=== PATIENT | female | born 1950 | race Caucasian/White ===

== ENCOUNTER 2017-03-27 09:14 | Inpatient (IN) | payer MEDICARE ==
[~2017-03-27] VITALS: Ht 157.5 cm; Wt 63.5 kg
--- NOTE | 2017-03-27 10:33 | NUR ---
PT REC'D TO ER C/O CONSTIPATION TAKES PAIN MEDS FOR CHRONIC BACK PAINAWAITING EVALUATION BY ER PROVIDER.
[2017-03-27] MEDS ORDERED: METOCLOPRAMIDE HCL 10 MG/2 ML VIAL ONE (10:39)
[2017-03-27] MEDS ORDERED: ONDANSETRON HCL/PF 4 MG/2 ML VIAL ONE (10:40)
[2017-03-27] MEDS ORDERED: ONDANSETRON HCL/PF 4 MG/2 ML VIAL IVP ONE (11:00)
[2017-03-27] MEDS ORDERED: IV NS 0.9% 1,000 ML BAG IV ONE ×2 (11:00→13:00)
[2017-03-27] MEDS ORDERED: METOCLOPRAMIDE HCL 10 MG/2 ML VIAL IV ONE (11:00)
--- NOTE | 2017-03-27 11:04 | NUR ---
IV STARTED 20G LEFT AC LABS DRANS SENT TO LAB MDED GIVEN PER MD ORDER
[2017-03-27 11:05] LABS: BASOPHILS # (AUTO) 0.7 /CMM (0.0-0.2); BASOPHILS % (AUTO) 4.2 % (0.0-2.0); EOSINOPHILS # (AUTO) 0.1 /CMM (0.0-0.7); EOSINOPHILS % (AUTO) 0.4 % (0.0-6.0); HEMATOCRIT 29 % (33-45); HEMOGLOBIN 9.7 g/dL (11.5-14.8); LYMPHOCYTES # (AUTO) 4.2 /CMM (0.8-4.8); MEAN CORPUSCULAR HEMOGLOBIN 30 PG (26.0-33.0); MEAN CORPUSCULAR HGB CONC 33 g/dl (31.0-36.0); MEAN CORPUSCULAR VOLUME 88 fL (82-100); MONOCYTES # (AUTO) 1.3 /CMM (0.1-1.30); NEUTROPHILS # (AUTO) 9.4 /CMM (1.8-8.9); NEUTROPHILS % (AUTO) 60.4 % (43.0-81.0); PLATELET COUNT (AUTO) 260 /CMM (150-450); RDW COEFFICIENT OF VARIATION 15.4 (11.5-15.0); RED BLOOD CELL COUNT(AUTO) 3.27 MIL/uL (4.0-5.2); WHITE BLOOD COUNT (AUTO) 15.7 K/uL (4.3-11.0)
[2017-03-27 11:15] LABS: CALCIUM, SERUM 9.3 mg/dL (8.5-10.1); POTASSIUM 3.2 mmol/L (3.5-5.1)
[2017-03-27 11:21] LABS: ALBUMIN 3.7 g/dL (3.4-5.0); BILIRUBIN,DIRECT 0.1 mg/dL (0.0-0.2); BILIRUBIN,TOTAL 0.6 mg/dL (0.2-1.0); TOTAL PROTEIN, SERUM 7.5 g/dL (6.4-8.2)
--- NOTE | 2017-03-27 11:22 | NUR ---
MEDS GIVEN PER
[2017-03-27] MEDS ORDERED: HYDROMORPHONE 1 MG/1 ML DISP.SYRIN ONE (11:30)
[2017-03-27] MEDS ORDERED: HYDROMORPHONE 1 MG/1 ML DISP.SYRIN IV ONE (11:30)
[2017-03-27] MEDS ORDERED: OXYC-34 PO (11:57)
[2017-03-27] MEDS ORDERED: IBUP-1481 PO (11:57)
[2017-03-27] MEDS ORDERED: LEVO100T9 PO (11:57)
[2017-03-27] MEDS ORDERED: POTASSIUM CHLORIDE 20 MEQ TAB.PRT.SR PO ONE ×2 (12:00→12:02)
--- NOTE | 2017-03-27 12:50 | NUR ---
pt k , bun, creatine abnormal notofoed md
[2017-03-27] MEDS ORDERED: LACTULOSE 10 G/15 ML UDC (PYXIS) ONE (12:58)
--- NOTE | 2017-03-27 12:58 | NUR ---
PAGED DR VELÁZQUEZ FOR ADMISSION
[2017-03-27] MEDS ORDERED: LACTULOSE 10 G/15 ML UDC (PYXIS) PO ONE (13:00)
--- NOTE | 2017-03-27 13:27 | NUR ---
REPORT CALLED TO FLOOR PT STABLE VOIDED 700 CC CL YELLOW URINE NO BM AT THIS TIME . AT THE BEDSIDE TO THE FLOOR VIA W/C
[2017-03-27] MEDS ORDERED: ACETAMINOPHEN 325 MG TABLET PO PRN (13:30)
[2017-03-27] MEDS ORDERED: Z GUARD REMEDY 2 OZ OINT TP PRN (13:30)
[2017-03-27] MEDS ORDERED: ZOLPIDEM TARTRATE 5 MG TABLET PO PRN (13:30)
[2017-03-27] MEDS ORDERED: MAG HYDROX/AL HYDROX/SIMETH 30 ML UDC PO PRN (13:30)
--- NOTE | 2017-03-27 14:40 | NUR ---
HEEL BURNISHER RECEIVED PATIENT FROM E.R. DEPARTMENT VIA [facility], ALERT AND ORIENTED, NO DISTRESS NOTED, ABLE TO AMBULATE WITH ASSISTANCE, PAIN ON BACK AREA TOLERABLE AT THIS TIME, NEEDS ATTENDED AND MET, PIV ON LAC PATENT AND INTACT, ORDERS RECEIVED FROM DR. VELÁZQUEZ AND CARRIED OUT, SAFETY MEASURES IN PLACED, CALL LIGHT WITHIN REACH, WILL CONTINUE TO MONITOR.
--- NOTE | 2017-03-27 15:00 | NUR ---
RN MS NOTES PHYSICAL AND SKIN ASSESSMENT COMPLETED, WOUND ON RIGHT INNER BUTTOCK AND BRUISE ON FOREHEAD, PHOTOS TAKEN, ALL NEEDS ATTENDED AND MET, WILL CONTINUE TO MONITOR.
[2017-03-27] MEDS: LEVOTHYROXINE SODIUM 100 MCG TABLET PO SCH (15:10)
[2017-03-27] MEDS: IV 1/2NS 1000 ML 1,000 ML IV PRN (15:13)
--- NOTE | 2017-03-27 17:00 | NUR ---
RN MS NOTES FOUND PATIENT'S HANDS WITH REDNESS AROUND THE FINGERNAILS AND WITH MULTIPLE ABRASIONS, PHOTO TAKEN, PER PATIENT, "I PICK ON MY CUTICLES, WHEN IM NERVOUS." PATIENT ENCOURAGED TO WASH HANDS, AND TO STOP FROM PICKING THE SKIN AROUND HER FINGERNAILS. PATIENT VERBALIZED UNDERSTANDING.
[2017-03-27] MEDS: HYDROCODONE/APAP 5/325MG 1 EACH TABLET PO PRN (17:58)
--- NOTE | 2017-03-27 18:15 | NUR ---
RN MS NOTES PATIENT IN BED, ALERT AND ORIENTED, REPOSITIONED MULTIPLE TIMES FOR COMFORT, NORCO GIVEN FOR PAIN MANAGEMENT, STILL NO BM AT THIS TIME, OFFERED PRUNE JUICE, BUT PATIENT REFUSED, PIV ON LEFT AC #20 WITH IVF RUNNING AT 100ML/HR, ALL NEEDS ATTENDED, NO DISTRESS NOTED, ENCOURAGED TO USE CALL LIGHT FOR ASSISTANCE WITH ADLS AND PLACED WITHIN REACH, SAFETY MEASURES IN PLACED, WILL ENDORSE TO MANAGER COMPETITIVE INTELLIGENCE FOR MARY.
--- NOTE | 2017-03-27 19:15 | NUR ---
MS RN OPENING NOTES: RECEIVED PT IN BED AWAKE AND IS RESTING IN BED. PT IS A/OX3-4. PT HAS IV ON L AC #20G AND IS PATENT ANT INTACT AND IS BEING INFUSED WITH IV 1/2 NS AT 100ML/HR. CALL LIGHT WITHIN PT'S REACH. BED KEPT IN LOCKED, LOWEST POSITION, AND SIDE RAILS X 2 UP. WILL CONTINUE TO MONITOR PT.
[2017-03-27] MEDS: ONDANSETRON HCL/PF 4 MG/2 ML VIAL IVP PRN (19:36)
--- NOTE | 2017-03-27 19:36 | NUR ---
MS RN NOTES: PT COMPLAINED OF BEING NAUSEOUS. PT WAS ADMINISTERED ZOFRAN IV. WILL CONTINUE TO MONITOR PT FOR N/V.
[2017-03-27 20:00] VITALS: BP 141/75
[2017-03-28] MEDS: HYDROCODONE/APAP 5/325MG 1 EACH TABLET PO PRN ×4 (00:18→19:32)
--- NOTE | 2017-03-28 00:18 | NUR ---
MS RN NOTES: PT COMPLAINED OF 6/10 BACK PAIN. PT WAS ADMINISTERED NORCO 5-325MG PO. WILL CONTINUE TO MONITOR PT.
[2017-03-28] MEDS: MAGNESIUM HYDROXIDE 30 ML UDC PO PRN (00:33)
--- NOTE | 2017-03-28 00:33 | NUR ---
MS RN NOTES: PT WAS OFFERED MILK OF MAGNESIA AND PT AGREED. WILL CONTINUE TO MONITOR PT FOR A BOWEL MOVEMENT.
[2017-03-28] MEDS: IV 1/2NS 1000 ML 1,000 ML IV PRN ×2 (04:00→22:13)
--- NOTE | 2017-03-28 05:41 | NUR ---
MS RN NOTES: PT COMPLAINED OF LOWER BACK PAIN 7/10 LOWER BACK PAIN. PT WAS ADMINISTERED NORCO5-325MG PO. WILL CONTINUE TO MONITOR PT.
[2017-03-28 06:42] LABS: BASOPHILS % (AUTO) 0.2 % (0.0-2.0); EOSINOPHILS # (AUTO) 0.2 /CMM (0.0-0.7); EOSINOPHILS % (AUTO) 1.8 % (0.0-6.0); HEMATOCRIT 25 % (33-45); HEMOGLOBIN 8.6 g/dL (11.5-14.8); LYMPHOCYTES # (AUTO) 5.1 /CMM (0.8-4.8); LYMPHOCYTES % (AUTO) 36.2 % (20.0-44.0); MEAN CORPUSCULAR HEMOGLOBIN 31 PG (26.0-33.0); MEAN CORPUSCULAR HGB CONC 34 g/dl (31.0-36.0); MEAN CORPUSCULAR VOLUME 91 fL (82-100); MONOCYTES # (AUTO) 1.2 /CMM (0.1-1.30); MONOCYTES % (AUTO) 8.3 % (2.0-12.0); NEUTROPHILS # (AUTO) 7.5 /CMM (1.8-8.9); NEUTROPHILS % (AUTO) 53.5 % (43.0-81.0); PLATELET COUNT (AUTO) 247 /CMM (150-450); RDW COEFFICIENT OF VARIATION 17.2 (11.5-15.0); RED BLOOD CELL COUNT(AUTO) 2.81 MIL/uL (4.0-5.2)
[2017-03-28 06:56] LABS: THYROID STIMULATING HORMONE 2.796 uIU/mL (0.358-3.74)
[2017-03-28 07:01] LABS: CALCIUM, SERUM 8.7 mg/dL (8.5-10.1); CREATININE 1.8 mg/dL (0.6-1.3); MAGNESIUM 2.2 mg/dL (1.8-2.4); PHOSPHORUS 3.1 mg/dL (2.5-4.9); POTASSIUM 3.8 mmol/L (3.5-5.1)
--- NOTE | 2017-03-28 07:22 | NUR ---
MS RN CLOSING NOTES: ALL NEEDS WERE ATTENDED AND ANTICIPATED FOR. PT IS IN BED ASLEEP AND RESTING. PT IS A/O X3-4. PT HAS IV ON L AC #20G AND IS PATENT ANT INTACT AND IS BEING INFUSED WITH IV 1/2 NS AT 100ML/HR. CALL LIGHT WITHIN PT'S REACH. BED KEPT IN LOCKED, LOWEST POSITION, AND SIDE RAILS X 2 UP. ENDORSED TO AM NURSE FOR MARY.
--- NOTE | 2017-03-28 07:30 | NUR ---
RN MS NOTES PT IS A/O X3-4, RESTING, IV ON L AC #20G AND IS PATENT ANT INTACT AND IS BEING INFUSED WITH IV 1/2 NS AT 100ML/HR. NEEDS ATTENDED AND MET, CALL LIGHT WITHIN PT'S REACH. BED KEPT IN LOCKED, LOWEST POSITION, AND SIDE RAILS X 2 UP, WILL CONTINUE TO MONITOR.
[2017-03-28] MEDS: LEVOTHYROXINE SODIUM 100 MCG TABLET PO SCH (07:57)
[2017-03-28 08:00] VITALS: BP 124/70
--- NOTE | 2017-03-28 09:15 | NUR ---
RN MS NOTES PATIENT SEEN AND EXAMINED BY DR. VELÁZQUEZ, RECEIVED NEW ORDER FOR XR OF LEFT RIBS DUE TO PAIN, ORDER NOTED AND CARRIED OUT, PATIENT HAD X1 BM.
--- NOTE | 2017-03-28 14:55 | NUR ---
COSTA PEREZ RELAYED LAB RESULTS TO DR. VELÁZQUEZ WITH NO NEW ORDER. Addendum: 03/28/17 at 1455 by BESSIE CARDENAS RN CORRECTION: MS JESSICA ROBLES
[2017-03-28 16:00] VITALS: BP 143/75
--- NOTE | 2017-03-28 16:13 | NUR ---
RN MS NOTES RELAYED RIB X-RAY RESULT TO DR. VELÁZQUEZ WITH NO NEW ORDER AT THIS TIME. PATIENT MADE AWARE.
--- NOTE | 2017-03-28 18:43 | NUR ---
RN MS NOTES PATIENT IN BED ALERT AND ORIENTED, NO DISTRESS NOTED, PIV ON RIGHT HAND PATENT AND FLUSHES WELL, WITH 1/2 NS FLUID RUNNING AT 100ML/HR, ASSISTED WITH ADLS, PATIENT USED A WALKER FOR AMBULATION, OFFERED A BEDSIDE COMMODE AND AGREED, PATIENT HAD BM THIS SHIFT, ALL NEEDS ATTENDED AND ANTICIPATED, CALL LIGHT WITHIN REACH, WILL ENDORSE TO DRY PLASTERER FOR MARY.
--- NOTE | 2017-03-28 19:32 | NUR ---
MS RN NOTES: PT IS COMPLAINING OF 7/10 ABDOMEN PAIN RADIATING TO HER LEFT SIDE OF HER LOWER BACK. PT WAS ADMINISTERED NORCO -325MG PO. WILL CONTINUE TO MONITOR PT.
[2017-03-28 20:00] VITALS: BP 152/76
[2017-03-28] MEDS: ONDANSETRON HCL/PF 4 MG/2 ML VIAL IVP PRN (22:04)
[2017-03-29] MEDS: MAGNESIUM HYDROXIDE 30 ML UDC PO PRN ×2 (01:20→08:36)
--- NOTE | 2017-03-29 01:20 | NUR ---
MS RN NOTES: PT REQUESTED AND WAS ADMINISTERED HER MILK OF MAGNESIA FOR CONSTIPATION.
[2017-03-29] MEDS: HYDROCODONE/APAP 5/325MG 1 EACH TABLET PO PRN ×3 (01:25→17:44)
--- NOTE | 2017-03-29 01:25 | NUR ---
MS RN NOTES: PT IS COMPLAINING OF 7/10 UPPER AND LOWER BACK PAIN. PT WAS ADMINISTERED NORCO -325MG PO. WILL CONTINUE TO MONITOR PT.
[2017-03-29] MEDS: ONDANSETRON HCL/PF 4 MG/2 ML VIAL IVP PRN (06:20)
--- NOTE | 2017-03-29 06:20 | NUR ---
MS RN NOTES: PT COMPLAINED OF NAUSEA. PT WAS ADMINISTERED ZOFRAN IV. WILL CONTINUE TO MONITOR FOR N/V.
[2017-03-29 06:43] LABS: BASOPHILS # (AUTO) 0.1 /CMM (0.0-0.2); BASOPHILS % (AUTO) 0.4 % (0.0-2.0); EOSINOPHILS # (AUTO) 0.4 /CMM (0.0-0.7); EOSINOPHILS % (AUTO) 2.9 % (0.0-6.0); HEMATOCRIT 26 % (33-45); HEMOGLOBIN 8.6 g/dL (11.5-14.8); LYMPHOCYTES # (AUTO) 4.5 /CMM (0.8-4.8); LYMPHOCYTES % (AUTO) 31.4 % (20.0-44.0); MEAN CORPUSCULAR HEMOGLOBIN 31 PG (26.0-33.0); MEAN CORPUSCULAR HGB CONC 34 g/dl (31.0-36.0); MEAN CORPUSCULAR VOLUME 91 fL (82-100); MONOCYTES # (AUTO) 1.2 /CMM (0.1-1.30); MONOCYTES % (AUTO) 8.4 % (2.0-12.0); NEUTROPHILS # (AUTO) 8.1 /CMM (1.8-8.9); NEUTROPHILS % (AUTO) 56.9 % (43.0-81.0); PLATELET COUNT (AUTO) 238 /CMM (150-450); RDW COEFFICIENT OF VARIATION 18.1 (11.5-15.0); RED BLOOD CELL COUNT(AUTO) 2.81 MIL/uL (4.0-5.2); WHITE BLOOD COUNT (AUTO) 14.2 K/uL (4.3-11.0)
[2017-03-29 07:03] LABS: CALCIUM, SERUM 8.2 mg/dL (8.5-10.1); CREATININE 1.5 mg/dL (0.6-1.3); MAGNESIUM 2.2 mg/dL (1.8-2.4); POTASSIUM 3.6 mmol/L (3.5-5.1)
--- NOTE | 2017-03-29 07:30 | NUR ---
RN OPENING NOTES RECEIVED PT. IN BED A&OX4. NO SOB, NO S/S OF ACUTE DISTRESS. IV FLUIDS RUNNING AT 100 ML/HR. BED IS IN LOW POSITION, 2 SIDE RAILS UP, AND INSTRUCTED PT. TO USE CALL LIGHT WITHIN REACH.
[2017-03-29 08:00] VITALS: BP 140/70
[2017-03-29] MEDS: LEVOTHYROXINE SODIUM 100 MCG TABLET PO SCH (08:29)
[2017-03-29] MEDS: IV 1/2NS 1000 ML 1,000 ML IV PRN (08:30)
--- NOTE | 2017-03-29 12:00 | NUR ---
RN NOTES PT. WAS MEASURED FOR AN LUMBAR SACRAL ORTHOTIC BRACE. PT. HAS A NEW BRACE NEAR HER BEDSIDE.
[2017-03-29 16:00] VITALS: BP 141/80
--- NOTE | 2017-03-29 19:30 | NUR ---
RN CLOSING NOTES PT. IN BED A&OX4. NO SOB, BREATHING UNLABORED. NO S/S OF ACUTE DISTRESS. IV FLUIDS RUNNING AT 100 ML/HR. BED IS IN LOW POSITION, 2 SIDE RAILS UP, AND INSTRUCTED PT. TO USE CALL LIGHT WITHIN REACH.
--- NOTE | 2017-03-29 19:30 | NUR ---
MS RN INITIAL NOTE RECEIVED PT AWAKE AND ALERT, ORIENTED X3, NORCO LAST GIVEN AT 1800, PT CONFIRMS THAT IS HAS BEEN EFFECTIVE FOR HER BACK PAIN, NO RESPIRATORY DISTRESS NOTED DURING PHYSICAL ASSESSMENT, PT IS COMFORTABLE AND COOPERATIVE WITH CARE, SHE IS AMBULATORY WITH ASSIST AND ABLE TO USE THE BEDSIDE COMMODE, SHE IS CLEAN/DRY AND ALL NEEDS HAVE BEEN ATTENDED TO, SAFETY MEASURES WILL BE MAINTAINED AT ALL TIMES, WILL CONTINUE TO MONITOR CLOSELY.
[2017-03-29 20:00] VITALS: BP 148/81
[2017-03-29 20:13] VITALS: BP 148/81
[2017-03-30] MEDS: ONDANSETRON HCL/PF 4 MG/2 ML VIAL IVP PRN (00:47)
[2017-03-30] MEDS: HYDROCODONE/APAP 5/325MG 1 EACH TABLET PO PRN (04:48)
[2017-03-30] MEDS: IV 1/2NS 1000 ML 1,000 ML IV PRN (06:47)
--- NOTE | 2017-03-30 07:34 | NUR ---
RN NOTES RECEIVED PT. IN BED, PT. IS SLEEPING COMFORTABLY. CAN AROUSE EASILY, A&OX4. NO S/S OF SOB, NO S/S OF ACUTE DISTRESS. PT. DENIES PAIN. IV FLUIDS RUNNING AT 100 ML/HR. BED IS IN LOW POSITION, 2 SIDE RAILS UP, AND CALL LIGHT WITHIN REACH.
[2017-03-30] MEDS: LEVOTHYROXINE SODIUM 100 MCG TABLET PO SCH (07:57)
[2017-03-30 08:00] VITALS: BP 126/68
[2017-03-30 10:41] LABS: BASOPHILS # (AUTO) 0.1 /CMM (0.0-0.2); BASOPHILS % (AUTO) 0.5 % (0.0-2.0); EOSINOPHILS # (AUTO) 0.3 /CMM (0.0-0.7); EOSINOPHILS % (AUTO) 2.4 % (0.0-6.0); HEMATOCRIT 29 % (33-45); HEMOGLOBIN 9.6 g/dL (11.5-14.8); LYMPHOCYTES # (AUTO) 3.9 /CMM (0.8-4.8); MEAN CORPUSCULAR HEMOGLOBIN 31 PG (26.0-33.0); MEAN CORPUSCULAR HGB CONC 34 g/dl (31.0-36.0); MEAN CORPUSCULAR VOLUME 91 fL (82-100); MONOCYTES % (AUTO) 7.3 % (2.0-12.0); NEUTROPHILS # (AUTO) 8.1 /CMM (1.8-8.9); NEUTROPHILS % (AUTO) 60.8 % (43.0-81.0); PLATELET COUNT (AUTO) 268 /CMM (150-450); RDW COEFFICIENT OF VARIATION 18.1 (11.5-15.0); RED BLOOD CELL COUNT(AUTO) 3.13 MIL/uL (4.0-5.2); WHITE BLOOD COUNT (AUTO) 13.3 K/uL (4.3-11.0)
[2017-03-30 10:56] LABS: ALBUMIN 3.1 g/dL (3.4-5.0); BILIRUBIN,TOTAL 0.5 mg/dL (0.2-1.0); CALCIUM, SERUM 8.4 mg/dL (8.5-10.1); CREATININE 1.4 mg/dL (0.6-1.3); MAGNESIUM 2.3 mg/dL (1.8-2.4); PHOSPHORUS 3.4 mg/dL (2.5-4.9); POTASSIUM 3.3 mmol/L (3.5-5.1)
--- NOTE | 2017-03-30 12:44 | NUR ---
RN NOTES GAVE REPORT TO JACINTO SKELTON, AT [facility] FOR A PT. DISCHARGE AND TRANSFER TO SNF. PT. SIGNED DISCHARGE PAPERS, AND VERBALIZED UNDERSTANDING. PT. SIGNED BELONGINGS LIST. ID BAND, AND IV WAS REMOVED WITHOUT COMPLICATIONS.
--- NOTE | 2017-03-30 13:00 | NUR ---
PAN DUMPER PT. LEFT IN MEDICALLY STABLE CONDITION WITH FRIENDS BY AMBULANCE.
== END 2017-03-30 13:04 | DRG 391 ==
LOC: ER 09:16 → MED 12:41
PROVIDERS: ADMIT Internal Medicine; ATTEND Internal Medicine
DX: K59.00 Constipation, unspecified (principal); N17.0 Acute kidney failure with tubular necrosis; S22.49XA Multiple fractures of ribs, unspecified side, initial encounter for closed fracture; Y92.129 Unspecified place in nursing home as the place of occurrence of the external cause; E87.6 Hypokalemia; I10 Essential (primary) hypertension; Z85.850 Personal history of malignant neoplasm of thyroid; M81.0 Age-related osteoporosis without current pathological fracture; D63.8 Anemia in other chronic diseases classified elsewhere; E89.0 Postprocedural hypothyroidism; T39.395A Adverse effect of other nonsteroidal anti-inflammatory drugs [NSAID], initial encounter; W19.XXXA Unspecified fall, initial encounter
CPT/HCPCS: 36415; 70450-TC; 71100-TC; 74020-TC; 80048-TC; 80053-TC; 80061-TC; 80076-TC; 83735-TC; 84100-TC; 84443-TC; 85025-TC; 87081-TC; 97001-TC; 97116-TC; 97530-TC; A4606; J1170; J2405; J2765; J3490; J7030; Z7610

== ENCOUNTER 2017-05-28 11:30 | Inpatient (IN) | payer MEDICARE ==
[~2017-05-28] VITALS: Ht 160 cm; Wt 56.7 kg
[~2017-05-28 11:30] MED LIST: IBUP-1481 PO; LEVO100T9 PO; OXYC-34 PO
--- NOTE | 2017-05-28 11:42 | NUR ---
PT SHARDA FROM SNF TO ER BED 10. C/O L SIDED BODY PAIN SINCE MARCH 27. WORST TODAY. DENIES ANY RECENT TRAUMA. WAS DIAGNOSED W/ RIB FRACTURE. GOWNED AND PLACED ON MONITOR. STABLE VITALS. AWAITING MD SIMS.
--- NOTE | 2017-05-28 11:49 | NUR ---
DR CHAMBERS AT BEDSIDE FOR EVAL.
[2017-05-28] MEDS ORDERED: ONDANSETRON HCL/PF 4 MG/2 ML VIAL ONE (11:55)
[2017-05-28] MEDS ORDERED: MORPHINE SULFATE INJ 4 MG/ML DISP.SYRIN ONE (11:55)
[2017-05-28] MEDS ORDERED: MORPHINE SULFATE INJ 2 MG/ML DISP.SYRIN IV ONE (12:00)
[2017-05-28] MEDS ORDERED: ONDANSETRON HCL/PF 4 MG/2 ML VIAL IVP ONE (12:00)
[2017-05-28] MEDS ORDERED: HYDR-552 PO (12:01)
[2017-05-28] MEDS ORDERED: MAG30ORA PO (12:01)
[2017-05-28] MEDS ORDERED: BISA10SU8 RC (12:01)
[2017-05-28] MEDS ORDERED: MAGN400O6 PO (12:01)
[2017-05-28] MEDS ORDERED: ACET-868 PO (12:01)
[2017-05-28] MEDS ORDERED: NA P133E RC (12:01)
[2017-05-28] MEDS ORDERED: CALC-7 PO (12:01)
[2017-05-28] MEDS ORDERED: DOCU-270 PO (12:01)
[2017-05-28] MEDS ORDERED: NUTR1PAC14 PO (12:01)
--- NOTE | 2017-05-28 12:08 | NUR ---
PT TO RADIOLOGY FOR CT CHEST,PELVIS AND ABDOMEN VIA [facility].
--- NOTE | 2017-05-28 13:46 | NUR ---
CALLED [email or web address] SALES SERVICE PROFESSIONAL WAS PAGED.
--- NOTE | 2017-05-28 13:54 | NUR ---
BRANCH MANAGER TRAINEE AT BEDSIDE FOR BLOOD DRAW.
[2017-05-28 13:59] LABS: BASOPHILS % (AUTO) 0.5 % (0.0-2.0); EOSINOPHILS # (AUTO) 0.2 /CMM (0.0-0.7); EOSINOPHILS % (AUTO) 1.8 % (0.0-6.0); HEMATOCRIT 38 % (33-45); HEMOGLOBIN 12.1 g/dL (11.5-14.8); LYMPHOCYTES # (AUTO) 2.8 /CMM (0.8-4.8); LYMPHOCYTES % (AUTO) 28.3 % (20.0-44.0); MEAN CORPUSCULAR HEMOGLOBIN 30 PG (26.0-33.0); MEAN CORPUSCULAR HGB CONC 32 g/dl (31.0-36.0); MEAN CORPUSCULAR VOLUME 95 fL (82-100); MONOCYTES # (AUTO) 0.8 /CMM (0.1-1.30); MONOCYTES % (AUTO) 7.7 % (2.0-12.0); NEUTROPHILS # (AUTO) 6.1 /CMM (1.8-8.9); NEUTROPHILS % (AUTO) 61.7 % (43.0-81.0); PLATELET COUNT (AUTO) 233 /CMM (150-450); RDW COEFFICIENT OF VARIATION 14.3 (11.5-15.0); WHITE BLOOD COUNT (AUTO) 9.9 K/uL (4.3-11.0)
[2017-05-28] MEDS ORDERED: IV NS 0.9% 500 ML BAG IV ONE (14:00)
[2017-05-28 14:08] LABS: CREATININE 1.5 mg/dL (0.6-1.3)
[2017-05-28 14:15] LABS: CALCIUM, SERUM 13.5 mg/dL (8.5-10.1)
--- NOTE | 2017-05-28 14:52 | NUR ---
REPORT GIVEN TO BRITTANY. PT AWAITING TRANSFER TO FLOOR.
[2017-05-28 16:00] VITALS: BP 155/86
[2017-05-28] MEDS ORDERED: ACETAMINOPHEN 325 MG TABLET PO PRN (16:00)
[2017-05-28] MEDS ORDERED: ONDANSETRON HCL/PF 4 MG/2 ML VIAL IVP PRN (16:00)
[2017-05-28] MEDS ORDERED: Z GUARD REMEDY 2 OZ OINT TP PRN (16:00)
[2017-05-28] MEDS ORDERED: ZOLPIDEM TARTRATE 5 MG TABLET PO PRN (16:00)
[2017-05-28] MEDS ORDERED: POTASSIUM CHLORIDE 20 MEQ TAB.PRT.SR PO ONE (16:00)
[2017-05-28] MEDS ORDERED: MORPHINE SULFATE INJ 2 MG/ML DISP.SYRIN IV PRN (16:00)
[2017-05-28] MEDS: ENOXAPARIN SODIUM 40 MG/0.4 ML DISP.SYRIN SQ SCH (16:07)
--- NOTE | 2017-05-28 16:28 | NUR ---
MS/golf manager Patient admitted from emergency room with diagnose of rib fracture and lytic bone lesion. Fully admitted, orders entered by Dr Conn.
[2017-05-28 16:34] VITALS: BP 155/86
[2017-05-28] MEDS ORDERED: PAMIDRONATE 90 MG in IV NS 0.9% 500 ML IV ONE (17:15)
[2017-05-28] MEDS: IV NS 0.9% 1,000 ML IV PRN (17:17)
[2017-05-28 17:39] LABS: ALBUMIN 3.6 g/dL (3.4-5.0); BILIRUBIN,DIRECT 0.1 mg/dL (0.0-0.2); BILIRUBIN,TOTAL 0.6 mg/dL (0.2-1.0); TOTAL PROTEIN, SERUM 7.8 g/dL (6.4-8.2)
[2017-05-28 17:42] LABS: URIC ACID 11.4 mg/dL (2.6-7.2)
--- NOTE | 2017-05-28 18:00 | NUR ---
MS/RN Morphine Morphine 2mg given IVP for pain scale 8/10, will monitor effectiveness.
[2017-05-28] MEDS ORDERED: LACTULOSE 10 G/15 ML UDC (PYXIS) PO PRN (18:30)
--- NOTE | 2017-05-28 19:07 | NUR ---
MS/RN Pelvic US Pelvic US in progress at bedside.
--- NOTE | 2017-05-28 19:30 | NUR ---
MS RN NOTE: PATIENT RESTING IN BED, NO ACUTE DISTRESS NOTED. BREATHING EVEN AND UNLABORED, NO SOB NOTED. IV TO LAC IN PLACE, INFUSING NS AT 100ML/HR. BED LOCKED AND IN LOWEST POSITION, CALL LIGHT IN REACH. WILL CONTINUE TO MONITOR.
[2017-05-28] MEDS: DOCUSATE SODIUM 100 MG CAPSULE PO SCH (19:45)
[2017-05-28] MEDS: MORPHINE SULFATE SR 15 MG TABLET.SA PO SCH (19:46)
[2017-05-28 20:00] VITALS: BP 174/94
--- NOTE | 2017-05-28 23:15 | NUR ---
MS RN NOTE: PATIENT ASKING IF SHE WILL HAVE A PET SCAN IN THE MORNING PER CONVERSATION WITH DR. GARCIA. REVIEWED CHART AND NO ORDERS OR MENTION OF PET SCAN. INFORMED THAT DR. GARCIA ORDERED ULTRASOUND OF BREAST AND PELVIS, BUT PENDING RESULTS. WILL FOLLOW UP IN MORNING.
--- NOTE | 2017-05-29 06:10 | NUR ---
MS RN NOTE: PATIENT RESTING IN BED, NO ACUTE DISTRESS NOTED. BREATHING EVEN AND UNLABORED, NO SOB NOTED. IV TO LAC IN PLACE, INFUSING NS AT 100ML/HR. BED LOCKED AND IN LOWEST POSITION, CALL LIGHT IN REACH. WILL ENDORSE TO DAY NURSE TO CONTINUE WITH PLAN OF CARE
[2017-05-29 06:33] LABS: BASOPHILS % (AUTO) 0.4 % (0.0-2.0); EOSINOPHILS # (AUTO) 0.2 /CMM (0.0-0.7); EOSINOPHILS % (AUTO) 2.5 % (0.0-6.0); HEMATOCRIT 33 % (33-45); HEMOGLOBIN 10.9 g/dL (11.5-14.8); LYMPHOCYTES # (AUTO) 2.1 /CMM (0.8-4.8); LYMPHOCYTES % (AUTO) 22.8 % (20.0-44.0); MEAN CORPUSCULAR HEMOGLOBIN 31 PG (26.0-33.0); MEAN CORPUSCULAR HGB CONC 33 g/dl (31.0-36.0); MEAN CORPUSCULAR VOLUME 96 fL (82-100); MONOCYTES # (AUTO) 0.9 /CMM (0.1-1.30); MONOCYTES % (AUTO) 9.6 % (2.0-12.0); NEUTROPHILS # (AUTO) 6.1 /CMM (1.8-8.9); NEUTROPHILS % (AUTO) 64.7 % (43.0-81.0); PLATELET COUNT (AUTO) 197 /CMM (150-450); RDW COEFFICIENT OF VARIATION 15.5 (11.5-15.0); RED BLOOD CELL COUNT(AUTO) 3.47 MIL/uL (4.0-5.2); WHITE BLOOD COUNT (AUTO) 9.4 K/uL (4.3-11.0)
--- NOTE | 2017-05-29 07:00 | NUR ---
RN INITIAL NOTES REPORT RECEIVED AT THE BEDSIDE. PATIENT RESTING COMFORTABLY IN BED. NO SOB OR DISTRESS NOTED AT THIS TIME. PATIENT REPORTING RISING PAIN LEVEL, BUT STATES SHE WANTS TO WAIT FOR 8AM MORPHINE FOR PAIN CONTROL. EXPLAINED THAT I CAN BRING SOMETHING NOW FOR THE PATIENT, BUT SHE STATES SHE WOULD LIKE TO WAIT. BED IN A LOW POSITION, CALL LIGHT WITHIN PATIENT REACH. WILL CONTINUE TO MONITOR.
[2017-05-29 07:02] LABS: ALBUMIN 3.1 g/dL (3.4-5.0); BILIRUBIN,TOTAL 0.4 mg/dL (0.2-1.0); CREATININE 1.4 mg/dL (0.6-1.3); MAGNESIUM 2.2 mg/dL (1.8-2.4); PHOSPHORUS 4.3 mg/dL (2.5-4.9); POTASSIUM 3.3 mmol/L (3.5-5.1); TOTAL PROTEIN, SERUM 6.9 g/dL (6.4-8.2)
[2017-05-29 07:10] LABS: THYROID STIMULATING HORMONE 1.125 uIU/mL (0.358-3.74)
[2017-05-29 08:00] VITALS: BP 145/86
[2017-05-29] MEDS: LEVOTHYROXINE SODIUM 100 MCG TABLET PO SCH (08:11)
[2017-05-29] MEDS: DOCUSATE SODIUM 100 MG CAPSULE PO SCH ×2 (08:11→16:42)
[2017-05-29] MEDS: PANTOPRAZOLE 40 MG TABLET.DR PO SCH (08:11)
[2017-05-29] MEDS: MORPHINE SULFATE SR 15 MG TABLET.SA PO SCH ×2 (08:42→20:41)
[2017-05-29] MEDS: IV NS 0.9% 1,000 ML IV PRN (10:19)
[2017-05-29 10:23] LABS: IMMUNOGLOBULIN A, SERUM 177 mg/dL (87-352); IMMUNOGLOBULIN G, SERUM 1319 mg/dL (700-1600); IMMUNOGLOBULIN M, SERUM 78 mg/dL (26-217)
[2017-05-29] MEDS ORDERED: FENTANYL TD PATCH (12 MCG/HR) 12 MCG/HR PATCH.TD72 TD SCH (10:30)
[2017-05-29] MEDS: MORPHINE SULFATE INJ 4 MG/ML DISP.SYRIN IV PRN ×2 (10:33→14:32)
[2017-05-29] MEDS: FENTANYL TD PATCH (12 MCG/HR) 12 MCG/HR PATCH.TD72 TD SCH (11:03)
--- NOTE | 2017-05-29 11:20 | NUR ---
RN NOTES FENLTINYL PATCH PLACED ON LEFT UPPER BACK.
[2017-05-29 12:13] LABS: CANCER AG, 125 13.2 U/mL (0.0-38.1); CANCER AG, 15-3 150.9 U/mL (0.0-25.0)
[2017-05-29] MEDS: CLOTRIMAZOLE 1% 15 GM TUBE TP SCH ×2 (12:13→16:42)
[2017-05-29] MEDS ORDERED: POTASSIUM CHLORIDE 20 MEQ TAB.PRT.SR PO SCH (12:30)
[2017-05-29 16:00] VITALS: BP 143/85
--- NOTE | 2017-05-29 19:12 | NUR ---
RN CLOSING NOTES NO SIGNIFICANT CHANGE IN PATIENT CONDITION. NO SOB OR DISTRESS NOTED AT THIS TIME. PATIENT REPORTS PAIN ONLY ON MOVEMENT. BED IN A LOW POSITION, CALL LIGHT WITHIN PATIENT REACH. ENDORSED FOR MARY.
--- NOTE | 2017-05-29 19:30 | NUR ---
MS RN NOTES RECEIVED RESTING COMFORTABLY ON BED,A/O X4,BREATHING NON LABORED,O2 SAT 87 TO 88% ON ROOM AIR,OFFERED OXYGEN BUT REFUSED.HOB ELEVATED.ENCOURAGED TO DO DEEP BREATHING EXERCISES,CLAIMED SHE KNOWS WHAT TO DO.WITH PAIN SCALE OF 9/10,ADVISED THAT O2 SAT WAS LOW AND WELL WAIT TILL O2 SAT GOES UP TO 90% AND SHE SAID VILMA.PRESENT IVF INFUSING WELL AT 100ML'HR RATE VIA IV PUMP.SCD OFF AT THIS TIME PER PATIENT REQUEST.REPOSITION TO COMFORT.CALL LIGHT IN REACH,NEEDS ANTICIPATED.
[2017-05-29 20:00] VITALS: BP 143/78
[2017-05-29] MEDS: ENOXAPARIN SODIUM 40 MG/0.4 ML DISP.SYRIN SQ SCH (20:45)
--- NOTE | 2017-05-29 20:45 | NUR ---
MS RN NOTES PAIN MANAGEMENT STILL IN PAIN ,O2 SAT 89 TO 90,DUE MS CONTIN 15MG PO GIVEN SCHEDULED.
[2017-05-29 22:00] VITALS: BP 143/78
[2017-05-30] MEDS: IV NS 0.9% 1,000 ML IV PRN ×3 (01:05→22:46)
[2017-05-30] MEDS: MORPHINE SULFATE INJ 4 MG/ML DISP.SYRIN IV PRN ×4 (01:06→22:42)
--- NOTE | 2017-05-30 01:06 | NUR ---
MS RN NOTES NEW IV BAG NS 1LITER HUNG INFUSING AT 100ML/HR RATE.C/O GENERALIZED PAIN 8/10 ON PAIN SCALE.MEDICATED WITH MORPHINE 4MG IV ORDERED
--- NOTE | 2017-05-30 06:05 | NUR ---
MS RN NOTES NO SIGNIFICANT CHANGE IN STATUS.PAIN MANAGEMENT EFFECTIVE.IN NO ACUTE DISTRESS.CALL LIGHT IN REACH,NEEDS ATTENDED.WILL ENDORSE TO DAY NURSE FOR MARY.
[2017-05-30 06:53] LABS: BASOPHILS % (AUTO) 0.1 % (0.0-2.0); EOSINOPHILS # (AUTO) 0.1 /CMM (0.0-0.7); EOSINOPHILS % (AUTO) 0.9 % (0.0-6.0); HEMATOCRIT 32 % (33-45); HEMOGLOBIN 10.5 g/dL (11.5-14.8); LYMPHOCYTES % (AUTO) 15.8 % (20.0-44.0); MEAN CORPUSCULAR HEMOGLOBIN 31 PG (26.0-33.0); MEAN CORPUSCULAR HGB CONC 33 g/dl (31.0-36.0); MEAN CORPUSCULAR VOLUME 95 fL (82-100); MONOCYTES # (AUTO) 0.4 /CMM (0.1-1.30); MONOCYTES % (AUTO) 6.7 % (2.0-12.0); NEUTROPHILS % (AUTO) 76.5 % (43.0-81.0); PLATELET COUNT (AUTO) 160 /CMM (150-450); RDW COEFFICIENT OF VARIATION 15.6 (11.5-15.0); RED BLOOD CELL COUNT(AUTO) 3.38 MIL/uL (4.0-5.2); WHITE BLOOD COUNT (AUTO) 6.5 K/uL (4.3-11.0)
--- NOTE | 2017-05-30 07:04 | NUR ---
RN INITIAL NOTES REPORT RECEIVED AT THE BEDSIDE. PATIENT IS SLEEPING. NO SOB OR DISTRESS NOTED AT THIS TIME. PATIENT DOES NOT APPEAR TO BE IN PAIN, NO FACIAL GRIMACE NOTED. BED IN A LOW POSITION, CALL LIGHT WITHIN PATIENT REACH. WILL CONTINUE TO MONITOR.
[2017-05-30 07:16] LABS: FERRITIN 300 ng/mL (8-388); IRON, SERUM 19 ug/dl (50-175); TOTAL IRON BINDING CAPACITY 289 ug/dl (250-450)
[2017-05-30 07:29] LABS: CALCIUM, SERUM 10.1 mg/dL (8.5-10.1); CREATININE 1.4 mg/dL (0.6-1.3); MAGNESIUM 2.1 mg/dL (1.8-2.4); PHOSPHORUS 2.7 mg/dL (2.5-4.9); POTASSIUM 3.7 mmol/L (3.5-5.1)
[2017-05-30] MEDS: DOCUSATE SODIUM 100 MG CAPSULE PO SCH ×2 (08:16→16:14)
[2017-05-30] MEDS: PANTOPRAZOLE 40 MG TABLET.DR PO SCH (08:16)
[2017-05-30] MEDS: LEVOTHYROXINE SODIUM 100 MCG TABLET PO SCH (08:16)
[2017-05-30] MEDS: MORPHINE SULFATE SR 15 MG TABLET.SA PO SCH ×2 (08:17→21:34)
[2017-05-30] MEDS: CLOTRIMAZOLE 1% 15 GM TUBE TP SCH ×2 (08:17→16:14)
[2017-05-30 08:27] VITALS: BP 133/75
[2017-05-30] MEDS: FENTANYL TD PATCH (25 MCG/HR) 25 MCG/HR PATCH.TD72 TD SCH (13:07)
--- NOTE | 2017-05-30 13:11 | NUR ---
RN NOTES OLD FENTANYL PATCH REMOVED FROM PATIENT'S UPPER BACK AND NEW 25MG PATCH PLACED ON RIGHT UPPER BACK.
[2017-05-30 16:00] VITALS: BP 109/72
--- NOTE | 2017-05-30 19:30 | NUR ---
MS RN NOTE RECEIVED PATIENT AWAKE ALERT AND ORIENTED IN BED. NO RESPIRATORY DISTRESS OR SOB NOTED. PATIENT HAS 5/10 PAIN TO LEFT RIBS. RELAXATION TECHNIQUES PROVIDED. WILL ADMINISTER PAIN MEDICATION ORDERED. IV SITE INTACT, WITH NO INFILTRATION NOTED. FLUIDS RUNNING ORDERED. SIDE RAILS UP, CALL LIGHT WITHIN REACH. WILL CONTINUE TO MONITOR.
[2017-05-30 20:00] VITALS: BP 139/83
[2017-05-30] MEDS: ENOXAPARIN SODIUM 40 MG/0.4 ML DISP.SYRIN SQ SCH (21:35)
--- NOTE | 2017-05-31 06:02 | NUR ---
MS RN NOTE PATIENT STABLE. SLEPT WELL THROUGHOUT THE NIGHT. PAIN MANAGED BY MEDICATION AND RELAXATION TECHNIQUES. ALL NEEDS MET AND ATTENDED TO. WILL ENDORSE TO DAY SHIFT FOR MARY.
[2017-05-31] MEDS: PANTOPRAZOLE 40 MG TABLET.DR PO SCH (06:34)
[2017-05-31] MEDS: MORPHINE SULFATE INJ 4 MG/ML DISP.SYRIN IV PRN ×2 (06:34→10:26)
[2017-05-31] MEDS: LEVOTHYROXINE SODIUM 100 MCG TABLET PO SCH (06:34)
[2017-05-31 06:43] LABS: BASOPHILS % (AUTO) 0.2 % (0.0-2.0); EOSINOPHILS # (AUTO) 0.2 /CMM (0.0-0.7); HEMATOCRIT 29 % (33-45); HEMOGLOBIN 9.9 g/dL (11.5-14.8); LYMPHOCYTES # (AUTO) 1.7 /CMM (0.8-4.8); LYMPHOCYTES % (AUTO) 25.1 % (20.0-44.0); MEAN CORPUSCULAR HEMOGLOBIN 32 PG (26.0-33.0); MEAN CORPUSCULAR HGB CONC 34 g/dl (31.0-36.0); MEAN CORPUSCULAR VOLUME 94 fL (82-100); MONOCYTES # (AUTO) 0.6 /CMM (0.1-1.30); MONOCYTES % (AUTO) 8.8 % (2.0-12.0); NEUTROPHILS # (AUTO) 4.3 /CMM (1.8-8.9); NEUTROPHILS % (AUTO) 62.9 % (43.0-81.0); PLATELET COUNT (AUTO) 149 /CMM (150-450); RDW COEFFICIENT OF VARIATION 15.2 (11.5-15.0); RED BLOOD CELL COUNT(AUTO) 3.12 MIL/uL (4.0-5.2); WHITE BLOOD COUNT (AUTO) 6.8 K/uL (4.3-11.0)
[2017-05-31 07:07] LABS: *SPE ALBUMIN 3.6 g/dL (2.9-4.4); *SPE ALPHA-1-GLOBULIN 0.4 g/dL (0.0-0.4); *SPE ALPHA-2-GLOBULIN 0.6 g/dL (0.4-1.0); *SPE BETA GLOBULIN 1.1 g/dL (0.7-1.3); *SPE GLOBULIN, TOTAL 3.5 g/dL (2.2-3.9); *SPE M-SPIKE Not Observed g/dL (Not Observed); *SPE PROTEIN TOTAL 7.1 g/dL (6.0-8.5); *SPEGAMMA GLOBULIN 1.4 g/dL (0.4-1.8)
[2017-05-31 07:15] LABS: CALCIUM, SERUM 8.7 mg/dL (8.5-10.1); CREATININE 1.2 mg/dL (0.6-1.3); PHOSPHORUS 2.6 mg/dL (2.5-4.9); POTASSIUM 3.6 mmol/L (3.5-5.1)
--- NOTE | 2017-05-31 08:00 | NUR ---
RN MS NOTES PATIENT ALERT AND ORIENTED X4, DENIES PAIN AT THIS TIME, PATIENT STATES INACTIVITY HELPS WITH THE PAIN, PATIENT ALSO MENTIONED NOT BEING ABLE TO GET OUT OF BED SINCE YESTERDAY, FEELS WEAKER. NEEDS ATTENDED AND ANTICIPATED, CALL LIGHT WITHIN REACH, SAFETY MEASURES IN PLACED, WILL CONTINUE TO MONITOR.
[2017-05-31 08:09] VITALS: BP 161/90
[2017-05-31] MEDS: DOCUSATE SODIUM 100 MG CAPSULE PO SCH ×2 (08:42→17:03)
[2017-05-31] MEDS: MORPHINE SULFATE SR 15 MG TABLET.SA PO SCH ×2 (08:44→20:20)
[2017-05-31] MEDS: CLOTRIMAZOLE 1% 15 GM TUBE TP SCH ×2 (08:45→17:04)
[2017-05-31] MEDS: IV NS 0.9% 1,000 ML IV PRN (08:47)
--- NOTE | 2017-05-31 11:00 | NUR ---
RN MS NOTES PATIENT ASSISTED WITH SLIDING UP THE BED, BUT REFUSES TO BE TURNED ON THE SIDE. EXPLAINED RISKS OF POSSIBLE SKIN BREAKDOWN, PATIENT VERBALIZED UNDERSTANDING, BUT SHE STATES, SHE'S IN TOO MUCH PAIN WHEN SHE MOVES.
[2017-05-31 16:00] VITALS: BP 147/89
--- NOTE | 2017-05-31 18:26 | NUR ---
RN MS NOTES PATIENT WAS SEEN BY DR. MELI BLANCHARD, PER MD, WILL ADJUST PAIN MEDICATIONS, REFUSED PT/OT, ASSISTED WITH TURNING AND REPOSITIONING, IVF INFUSING AT 100ML/HR, NO DISTRESS NOTED, NEEDS ATTENDED AND MET, CALL LIGHT WITHIN REACH, WILL ENDORSE TO TELLER FOR MARY.
--- NOTE | 2017-05-31 18:49 | NUR ---
RN MS NOTES PATIENT OFFERED AN ISOFLEX BED D/T IMMOBILITY AND EXPLAINED RISKS OF SKIN BREAKDOWN D/T PATIENT NOT COMPLETELY MOVING SIDE TO SIDE, PATIENT REFUSES TO MOVE D/T PAIN, AND SHE STATED "NOT NOW, I FEEL DISCOMBOBULATED RIGHT NOW." WILL ENDORSE TO [employer]IX SYSTEM ADMINISTRATOR.
--- NOTE | 2017-05-31 19:30 | NUR ---
MS RN NOTE RECEIVED PATIENT AWAKE AND ALERT IN BED. PATIENT CONTINUES TO HAVE 8/10 PAIN TO LEFT RIBS. RELAXATION TECHNIQUES PROVIDED. WILL ADMINISTER PAIN MEDICATION ORDERED. IV SITE INTACT, WITH FLUIDS RUNNING ORDERED. BED LOCKED AND IN LOWEST POSITION. SIDE RAILS UP CALL LIGHT WITHIN REACH. WILL CONTINUE TO MONITOR.
[2017-05-31 20:00] VITALS: BP 141/85
[2017-05-31] MEDS: ENOXAPARIN SODIUM 40 MG/0.4 ML DISP.SYRIN SQ SCH (20:20)
[2017-06-01] MEDS: MORPHINE SULFATE INJ 4 MG/ML DISP.SYRIN IV PRN ×3 (05:26→16:40)
[2017-06-01] MEDS: IV NS 0.9% 1,000 ML IV PRN ×2 (05:27→15:49)
[2017-06-01 06:32] LABS: BASOPHILS % (AUTO) 0.3 % (0.0-2.0); EOSINOPHILS # (AUTO) 0.2 /CMM (0.0-0.7); EOSINOPHILS % (AUTO) 2.6 % (0.0-6.0); HEMATOCRIT 30 % (33-45); HEMOGLOBIN 9.8 g/dL (11.5-14.8); LYMPHOCYTES # (AUTO) 1.7 /CMM (0.8-4.8); LYMPHOCYTES % (AUTO) 21.5 % (20.0-44.0); MEAN CORPUSCULAR HEMOGLOBIN 31 PG (26.0-33.0); MEAN CORPUSCULAR HGB CONC 33 g/dl (31.0-36.0); MEAN CORPUSCULAR VOLUME 95 fL (82-100); MONOCYTES # (AUTO) 0.8 /CMM (0.1-1.30); MONOCYTES % (AUTO) 9.7 % (2.0-12.0); NEUTROPHILS # (AUTO) 5.3 /CMM (1.8-8.9); NEUTROPHILS % (AUTO) 65.9 % (43.0-81.0); PLATELET COUNT (AUTO) 153 /CMM (150-450); RDW COEFFICIENT OF VARIATION 15.2 (11.5-15.0); RED BLOOD CELL COUNT(AUTO) 3.19 MIL/uL (4.0-5.2)
[2017-06-01] MEDS: LEVOTHYROXINE SODIUM 100 MCG TABLET PO SCH (06:44)
[2017-06-01] MEDS: PANTOPRAZOLE 40 MG TABLET.DR PO SCH (06:44)
--- NOTE | 2017-06-01 06:47 | NUR ---
MS RN NOTE PATIENT STABLE. WILL ENDORSE TO DAY SHIFT FOR MARY.
[2017-06-01 06:57] LABS: PHOSPHORUS 2.6 mg/dL (2.5-4.9); POTASSIUM 3.4 mmol/L (3.5-5.1)
--- NOTE | 2017-06-01 07:48 | NUR ---
RN NOTES RECEIVED PT. PT IS STABLE AND RESTING IN BED. A/OX4. NO S/S OF DISTRESS OR SOB. PT HAS C/O MILD PAIN AT THIS TIME, WILL F/U WITH PAIN MANAGEMENT. PT IS ON RA WITH O2 SAT ABOVE 95%. IV ACCESS LOCATED ON LAC 20G NS RUNNING AT 100 ML/HR. SAFETY MEASURES IN PLACE, CALL LIGHT WITHIN REACH. WILL CONTINUE TO MONITOR.
[2017-06-01 08:00] VITALS: BP 136/81
[2017-06-01] MEDS: FOLIC ACID 1 MG TABLET PO SCH (08:18)
[2017-06-01] MEDS: DOCUSATE SODIUM 100 MG CAPSULE PO SCH ×2 (08:18→16:40)
[2017-06-01] MEDS: MORPHINE SULFATE SR 15 MG TABLET.SA PO SCH (08:18)
[2017-06-01] MEDS: CLOTRIMAZOLE 1% 15 GM TUBE TP SCH ×2 (09:20→16:41)
[2017-06-01] MEDS: FENTANYL TD PATCH (12 MCG/HR) 12 MCG/HR PATCH.TD72 TD SCH (10:31)
[2017-06-01] MEDS ORDERED: POTASSIUM CHLORIDE 20 MEQ TAB.PRT.SR PO SCH (12:00)
[2017-06-01] MEDS: SOD FERRIC GLUC 125 MG in IV NS 0.9% 100 ML IV SCH (15:49)
[2017-06-01 16:00] VITALS: BP 147/84
--- NOTE | 2017-06-01 18:45 | NUR ---
RN CLOSING NOTES PT IS AWAKE AND IN BED RESTING. A/OX4. NO S/S OF DISTRESS OR SOB. PT HAS C/O PAIN AT THIS TIME, WILL F/U WITH PAIN MANAGEMENT. PT HAS REQUESTED TRANSFER TO [facility] OR [place] FOR ADDITIONAL TREATMENT. PER MD ORDER, WILL F/U WITH DR. WRIGHT ON TRANSFER TOMORROW. 06/02/17. SAFETY MEASURES IN PLACE, CALL LIGHT WITHIN REACH, WILL ENDORSE TO OCCUPATIONAL THERAPIST PER DIEM FOR MARY.
--- NOTE | 2017-06-01 19:30 | NUR ---
MS RN NOTES RECEIVED ON BED A/O X4,BREATHING REGULAR,NOT IN ANY FORM OF DISTRESS,O2 SAT 93% ON ROOM AIR,IV FLUIDS INFUSING WELL VIA IV PUMP ON LEFT AC,SITE PATENT.ON FENTANYL PATCH FOR PAIN MANAGEMENT.CALL LIGHT IN REACH,NEEDS ANTICIPATED.
--- NOTE | 2017-06-01 19:45 | NUR ---
MS RN NOTES SEEN BY DR GARCIA,MS CONTIN WAS DISCONTINUED,REPLACE WITH NORCO 5/325 FOR PAIN PAIN MANAGEMENT.
[2017-06-01 19:56] VITALS: BP 148/84
[2017-06-01 20:00] VITALS: BP 148/84
[2017-06-01] MEDS: HYDROCODONE/APAP 5/325MG 1 EACH TABLET PO PRN (21:09)
--- NOTE | 2017-06-01 21:09 | NUR ---
MS RN NOTES PAIN MANAGEMENT C/O GENERALIZED PAIN 5/10 ON PAIN SCALE,NORCO 5/325MG,1 TAB PO GIVEN
[2017-06-01] MEDS: ENOXAPARIN SODIUM 40 MG/0.4 ML DISP.SYRIN SQ SCH (21:10)
--- NOTE | 2017-06-02 02:00 | NUR ---
MS RN NOTES AWAKE,REPOSITION TO COMFORT.
--- NOTE | 2017-06-02 03:27 | NUR ---
MS RN NOTES AWAKE,C/O GENERALIZED PAIN,MEDICATED WITH MORPHINE 4MG IV FOR PAIN SCALE 8/10.WILL MONITOR FOR RELIEF.
[2017-06-02] MEDS: MORPHINE SULFATE INJ 4 MG/ML DISP.SYRIN IV PRN ×3 (03:28→14:05)
--- NOTE | 2017-06-02 06:28 | NUR ---
MS RN NOTES STILL IN PAIN ON AND OFF,MANAGE WITH FENTANYL PATCH 37MCG ORDERED,ALONG WITH MORPHINE AND VICODIN NEEDED.IV SITE STILL PATENT,REFUSED TO BE RESITED.IN NO ACUTE DISTRESS.WILL ENDORSE TO DAY NURSE FOR MARY.
[2017-06-02 06:44] LABS: BASOPHILS % (AUTO) 0.5 % (0.0-2.0); EOSINOPHILS # (AUTO) 0.3 /CMM (0.0-0.7); EOSINOPHILS % (AUTO) 3.4 % (0.0-6.0); HEMATOCRIT 30 % (33-45); HEMOGLOBIN 9.8 g/dL (11.5-14.8); LYMPHOCYTES # (AUTO) 2.2 /CMM (0.8-4.8); LYMPHOCYTES % (AUTO) 28.1 % (20.0-44.0); MEAN CORPUSCULAR HEMOGLOBIN 30 PG (26.0-33.0); MEAN CORPUSCULAR HGB CONC 32 g/dl (31.0-36.0); MEAN CORPUSCULAR VOLUME 93 fL (82-100); MONOCYTES # (AUTO) 0.9 /CMM (0.1-1.30); MONOCYTES % (AUTO) 10.8 % (2.0-12.0); NEUTROPHILS # (AUTO) 4.5 /CMM (1.8-8.9); NEUTROPHILS % (AUTO) 57.2 % (43.0-81.0); PLATELET COUNT (AUTO) 171 /CMM (150-450); RED BLOOD CELL COUNT(AUTO) 3.23 MIL/uL (4.0-5.2); WHITE BLOOD COUNT (AUTO) 7.9 K/uL (4.3-11.0)
[2017-06-02 06:49] LABS: CALCIUM, SERUM 7.9 mg/dL (8.5-10.1); CREATININE 0.8 mg/dL (0.6-1.3); PHOSPHORUS 2.4 mg/dL (2.5-4.9); POTASSIUM 3.4 mmol/L (3.5-5.1)
[2017-06-02 08:00] VITALS: BP 133/77
--- NOTE | 2017-06-02 08:00 | NUR ---
RN NOTES RECEIVED PT. PT IS STABLE AND AWAKE IN BED. A/OX4. NO S/S OF DISTRESS OR SOB. PT HAS C/O PAIN AT THIS TIME, WILL MANAGE WITH PHARMACOLOGICAL INTERVENTIONS. PT IS ON 3L O2 VIA NC. O2 SAT ABOVE 95%. IV ACCESS PATENT, NO S/S OF INFECTION OR INFILTRATION. SAFETY MEASURES IN PLACE, CALL LIGHT WITHIN REACH, WILL CONTINUE TO MONITOR.
[2017-06-02] MEDS: DOCUSATE SODIUM 100 MG CAPSULE PO SCH ×2 (08:19→17:15)
[2017-06-02] MEDS: PANTOPRAZOLE 40 MG TABLET.DR PO SCH (08:19)
[2017-06-02] MEDS: FOLIC ACID 1 MG TABLET PO SCH (08:19)
[2017-06-02] MEDS: LEVOTHYROXINE SODIUM 100 MCG TABLET PO SCH (08:19)
[2017-06-02] MEDS: CLOTRIMAZOLE 1% 15 GM TUBE TP SCH ×2 (08:26→17:24)
[2017-06-02] MEDS ORDERED: POTASSIUM PHOSPHATE MM 15 MMOL in IV D5W 250 ML IV SCH (09:30)
[2017-06-02] MEDS: Potassium Phosphate meq 11 MEQ in IV D5W 100 ML IV SCH ×2 (11:00→13:13)
[2017-06-02] MEDS: FENTANYL TD PATCH (25 MCG/HR) 25 MCG/HR PATCH.TD72 TD SCH (12:33)
[2017-06-02] MEDS: SOD FERRIC GLUC 125 MG in IV NS 0.9% 100 ML IV SCH (14:37)
[2017-06-02 16:00] VITALS: BP 147/83
[2017-06-02] MEDS: HYDROCODONE/APAP 5/325MG 1 EACH TABLET PO PRN (17:15)
--- NOTE | 2017-06-02 19:09 | NUR ---
DISCHARGE NOTE PT DISCHARGED TO [facility]. PER MD INSTRUCTION, PT IS TO CONTINUE ALL MEDS AND F/U WITH DR. GARCIA FOR BIOPSY WITHIN ONE WEEK. VSS, PT HAS C/O PAIN AT DISCHARGE. PAIN IS TOLERABLE WITH PAIN MEDICATION. BLANCHABLE REDNESS OF PT SACRUM NOTED, PT REFUSED TO HAVE PICTURES TAKEN DUE TO PAIN DURING REPOSITIONING. NO S/S OF RESPIRATORY DISTRESS. PT IV ACCESS REMAINS PER REQUEST FROM [facility]. PT TEACHING PERFORMED WITH EXIT CARE, PT AND FAMILY VERBALIZE UNDERSTANDING. DISCHARGE PAPERWORK, BELONGINGS LIST BOTH SIGNED AND COPIED. PT LEFT WITH AMBULANCE TRANSPORT VIA GURNEY.
[2017-06-03] MEDS ORDERED: FENT1PAT2 TD (08:47)
[2017-06-03] MEDS ORDERED: ENOX40DI SQ (08:47)
[2017-06-03] MEDS ORDERED: CLOT15CR35 TP (08:47)
[2017-06-03] MEDS ORDERED: DOCU-25 PO (08:47)
== END 2017-06-02 19:40 | DRG 843 ==
LOC: ER 11:30 → MEDSG2 14:28
PROVIDERS: ADMIT Nurse Practitioner Acute Care; ATTEND Nurse Practitioner Acute Care
DX: C80.1 Malignant (primary) neoplasm, unspecified (principal); N17.0 Acute kidney failure with tubular necrosis; S22.42XA Multiple fractures of ribs, left side, initial encounter for closed fracture; M84.48XA Pathological fracture, other site, initial encounter for fracture; E83.52 Hypercalcemia; D52.9 Folate deficiency anemia, unspecified; E87.6 Hypokalemia; I10 Essential (primary) hypertension; M19.90 Unspecified osteoarthritis, unspecified site; Z87.442 Personal history of urinary calculi; G89.29 Other chronic pain; D25.9 Leiomyoma of uterus, unspecified; N20.0 Calculus of kidney; E89.0 Postprocedural hypothyroidism; N63.10 Unspecified lump in the right breast, unspecified quadrant; Z85.850 Personal history of malignant neoplasm of thyroid; N83.201 Unspecified ovarian cyst, right side; K59.00 Constipation, unspecified; X58.XXXA Exposure to other specified factors, initial encounter; Y93.9 Activity, unspecified; Y92.129 Unspecified place in nursing home as the place of occurrence of the external cause; C79.9 Secondary malignant neoplasm of unspecified site
CPT/HCPCS: 36415; 71250-TC; 76642-TC; 76856-TC; 80048-TC; 80053-TC; 80061-TC; 80076-TC; 82306; 82378; 82728-TC; 82746; 82784; 83540-TC; 83615-TC; 83735-TC; 83970; 84100-TC; 84155; 84165; 84443-TC; 84550-TC; 85025-TC; 86300; 86301; 86304; 86334; 87081-TC; 93307-TC; A4606; J1650; J2270; J2405; J2430; J2916; J3490; J7030; J7040; J7060; Z7610